=== PATIENT | female | born 1985 | race Caucasian/White ===

== ENCOUNTER 2017-05-19 20:30 | Emergency (ER) | payer OTHER ==
[2017-05-19 21:07] LABS: Hematocrit 40 % (35-47); Hemoglobin 13.4 g/dl (12.0-16.0); Mean Corpuscular HGB Conc 34 g/dl (31-36); Mean Corpuscular Hemoglobin 30 pg (27-31); Mean Corpuscular Volume 90 fL (80-97); Mean Platelet Volume 11 um3 (7.4-10.4); Red Blood Count 4.42 10^6/ul (4.0-5.4); Red Cell Distribution Width 13 % (10.5-15); White Blood Count 12.9 10^3/ul (3.5-10.8)
[2017-05-19 21:22] LABS: Albumin 4.1 g/dL (3.2-5.2); BUN/Creatinine Ratio 16.1 (8-20); Calcium 9.5 mg/dL (8.6-10.3); EGFR African American 142.6 (>60); EGFR Non-African American 110.9 (>60); Globulin 3.6 g/dL (2-4); Total Bilirubin 0.4 mg/dL (0.2-1.0); Total Protein 7.7 g/dL (6.4-8.9)
[2017-05-19 21:40] LABS: Urine Bilirubin Negative (Negative); Urine Glucose Negative (Negative); Urine Nitrite Negative (Negative)
[2017-05-19 21:41] LABS: Urine Bacteria Absent (Absent)
[2017-05-19] MEDS ORDERED: NS 0.9% 1000 ML* 1,000 ML IV ONE (21:44)
[2017-05-19] MEDS ORDERED: Potassium Chlor TAB* 20 MEQ TAB.ER PO ONE (22:56)
--- NOTE | 2017-05-19 23:35 | ED ---
- HPI Summary HPI Summary: 31F at 13 weeks 2 days presents with vaginal bleeding for an hour. She states that she noticed when she stood up some heavy vaginal bleeding. She states that she had a normal u/s on Saturday and that everything with the had been going well. She denies any dysuria, flank pain, frequency, urgency, history of STDs, fever, n/v/d/c. [facility]. She has cramp like pelvic pain present. She has not taken anything for her pain. - History of Current Complaint Chief Complaint: EDVaginalBleeding Stated Complaint: 13 WKS PREG/BLEEDING Time Seen by Provider: 05/19/17 20:42 Pain Intensity: 3 - Assessment Hx Hysterectomy: No - Allergies/Home Medications Allergies/Adverse Reactions: Allergies Allergy/AdvReac Type Severity Reaction Status Date / Time Amoxicillin Allergy Unknown Verified 03/29/15 11:05 Reaction Details PMH/Surg Hx/FS Hx/Imm Hx Previously Healthy: Yes Endocrine/Hematology History: Denies: Hx Anticoagulant Therapy Cardiovascular History: Denies: Hx Hypertension Infectious Disease History: No Infectious Disease History: Denies: Traveled Outside the [place] in Last 30 Days - Family History Known Family History: Positive: Hypertension - Social History Alcohol Use: None Substance Use Type: Reports: None Smoking Status (MU): Current Every Day Smoker Review of Systems Negative: Fever Negative: Chest Pain Negative: Shortness Of Breath Positive: Abdominal Pain - pelvic pain. Negative: Vomiting, Diarrhea All Other Systems Reviewed And Are Negative: Yes Physical Exam - Physical Exam Triage Information Reviewed: Yes Vital Signs Reviewed: Yes Appearance: Positive: Well-Appearing Skin: Positive: Warm, Dry Head/Face: Positive: Normal Head/Face Inspection Eyes: Positive: Normal, Conjunctiva Clear ENT: Positive: Normal ENT inspection, Pharynx normal, TMs normal Respiratory/Lung Sounds: Positive: Clear to Auscultation, Breath Sounds Present Cardiovascular: Positive: Normal, RRR Abdomen Description: Positive: Soft, Other: - mild tenderness in pelvic region Bowel Sounds: Positive: Present Diagnostics - Vital Signs Vital Signs Temp Pulse Resp BP Pulse Ox 05/19/17 20:37 97 F 90 18 123/88 96 05/19/17 20:34 97.7 F 85 20 123/88 98 - Laboratory Lab Results: Lab Results 07/05/19/17 05/19/17 Range/Units 20:45 20:50 20:50 WBC 12.9 H (3.5-10.8) 10^3/ul RBC 4.42 (4.0-5.4) 10^6/ul Hgb 13.4 (12.0-16.0) g/dl Hct 40 (35-47) % MCV 90 (80-97) fL MCH 30 (27-31) pg MCHC 34 (31-36) g/dl RDW 13 (10.5-15) % Plt Count 229 (150-450) 10^3/ul MPV 11 H (7.4-10.4) um3 Neut % (Auto) 66.7 (38-83) % Lymph % (Auto) 26.5 (25-47) % Kleberg % (Auto) 5.5 (1-9) % Eos % (Auto) 0.9 (0-6) % Baso % (Auto) 0.4 (0-2) % Absolute Neuts (auto) 8.6 H (1.5-7.7) 10^3/ul Absolute Lymphs (auto) 3.4 (1.0-4.8) 10^3/ul Absolute Monos (auto) 0.7 (0-0.8) 10^3/ul Absolute Eos (auto) 0.1 (0-0.6) 10^3/ul Absolute Basos (auto) 0.1 (0-0.2) 10^3/ul Absolute Nucleated RBC 0 10^3/ul Nucleated RBC % 0 INR (Anticoag Therapy) (0.89-1.11) APTT (26.0-36.3) seconds Sodium 132 L (133-145) mmol/L Potassium 3.0 L (3.5-5.0) mmol/L Chloride 102 (101-111) mmol/L Carbon Dioxide 22 (22-32) mmol/L Anion Gap 8 (2-11) mmol/L BUN 10 (6-24) mg/dL Creatinine 0.62 (0.51-0.95) mg/dL Est GFR ( Amer) 142.6 (>60) Est GFR (Non-Af Amer) 110.9 (>60) BUN/Creatinine Ratio 16.1 (8-20) Glucose 85 (70-100) mg/dL Calcium 9.5 (8.6-10.3) mg/dL Total Bilirubin 0.40 (0.2-1.0) mg/dL AST 12 L (13-39) U/L ALT 18 (7-52) U/L Alkaline Phosphatase 71 (34-104) U/L Total Protein 7.7 (6.4-8.9) g/dL Albumin 4.1 (3.2-5.2) g/dL Globulin 3.6 (2-4) g/dL Albumin/Globulin Ratio 1.1 (1-3) Beta HCG, Quant 877218.00 mIU/mL Urine Color Red A Urine Appearance Turbid Urine pH 7.0 (5-9) Ur Specific Gaffney 1.025 (1.010-1.030) Urine Protein 2+(100 mg/dl) H (Negative) Urine Ketones Negative (Negative) Urine Blood 3+ H (Negative) Urine Nitrate Negative (Negative) Urine Bilirubin Negative (Negative) Urine Urobilinogen Negative (Negative) Ur Leukocyte Esterase Negative (Negative) Urine WBC (Auto) Absent (Absent) Urine RBC (Auto) 3+(>10/hpf) H (Absent) Ur Squamous Epith Cells Present H (Absent) Urine Bacteria Absent (Absent) Urinalysis Comment Urine Glucose Negative (Negative) Blood Type 05/19/17 05/19/17 Range/Units 20:50 20:50 WBC (3.5-10.8) 10^3/ul RBC (4.0-5.4) 10^6/ul Hgb (12.0-16.0) g/dl Hct (35-47) % MCV (80-97) fL MCH (27-31) pg MCHC (31-36) g/dl RDW (10.5-15) % Plt Count (150-450) 10^3/ul MPV (7.4-10.4) um3 Neut % (Auto) (38-83) % Lymph % (Auto) (25-47) % Kleberg % (Auto) (1-9) % Eos % (Auto) (0-6) % Baso % (Auto) (0-2) % Absolute Neuts (auto) (1.5-7.7) 10^3/ul Absolute Lymphs (auto) (1.0-4.8) 10^3/ul Absolute Monos (auto) (0-0.8) 10^3/ul Absolute Eos (auto) (0-0.6) 10^3/ul Absolute Basos (auto) (0-0.2) 10^3/ul Absolute Nucleated RBC 10^3/ul Nucleated RBC % INR (Anticoag Therapy) 0.90 (0.89-1.11) APTT 28.3 (26.0-36.3) seconds Sodium (133-145) mmol/L Potassium (3.5-5.0) mmol/L Chloride (101-111) mmol/L Carbon Dioxide (22-32) mmol/L Anion Gap (2-11) mmol/L BUN (6-24) mg/dL Creatinine (0.51-0.95) mg/dL Est GFR ( Amer) (>60) Est GFR (Non-Af Amer) (>60) BUN/Creatinine Ratio (8-20) Glucose (70-100) mg/dL Calcium (8.6-10.3) mg/dL Total Bilirubin (0.2-1.0) mg/dL AST (13-39) U/L ALT (7-52) U/L Alkaline Phosphatase (34-104) U/L Total Protein (6.4-8.9) g/dL Albumin (3.2-5.2) g/dL Globulin (2-4) g/dL Albumin/Globulin Ratio (1-3) Beta HCG, Quant mIU/mL Urine Color Urine Appearance Urine pH (5-9) Ur Specific Gaffney (1.010-1.030) Urine Protein (Negative) Urine Ketones (Negative) Urine Blood (Negative) Urine Nitrate (Negative) Urine Bilirubin (Negative) Urine Urobilinogen (Negative) Ur Leukocyte Esterase (Negative) Urine WBC (Auto) (Absent) Urine RBC (Auto) (Absent) Ur Squamous Epith Cells (Absent) Urine Bacteria (Absent) Urinalysis Comment Urine Glucose (Negative) Blood Type O Positive Result Diagrams: 05/19/17 20:50 05/19/17 20:50 Lab Statement: Any lab studies that have been ordered have been reviewed, and results considered in the medical decision making process. - Ultrasound No standard instances Ultrasound Interpretation: Positive (See Comments) - single liver interauterine gestation of approximately 12 weeks 6 days, moderate sized beau-gestational hematoma seen predominantly posterior to gestational sac. normal apperance of both ovaries. Ultrasound Interpretation Completed By: Radiologist Course/Dx - Course Course Of Treatment: 31F at 13 weeks 2 days presents with vaginal bleeding for an hour. She states that she noticed when she stood up some heavy vaginal bleeding. She states that she had a normal u/s on Saturday and that everything with the had been going well. She denies any dysuria, flank pain, frequency, urgency, history of STDs, fever, n/v/d/c. She has cramp like pelvic pain present. on exam mild pelvic tenderness. vital and h/h stable. u/s shows hematoma. explained results to patient and that needs to follow up with obgyn. patient understands and agrees with plan - Differential Diagnosis/HQI/PQRI: Spontaneous , Threatened , Intrauterine , Subchorionic Hemorrhage - Diagnoses Provider Diagnoses: Vaginal bleeding before 22 weeks gestation Discharge - Discharge Plan Condition: Good Disposition: HOME Patient Education Materials: Threatened Miscarriage (ED) Referrals: No Primary Care Phys,NOPCP [Primary Care Provider] - Additional Instructions: Will need repeat lab work in 48 hours Can take Tylenol for pain every 6 hours Follow up with obgyn Return to ED if develop severe pain, or any new or worsening symptoms
[2017-05-19 23:49] VITALS: BP 131/81
--- NOTE | 2017-05-20 07:25 | RAD ---
INDICATION: , vaginal bleeding. COMPARISON: There are no prior studies available for comparison. TECHNIQUE: Multiple real-time transvaginal images of the pelvis were obtained. FINDINGS: This exam demonstrates an early intrauterine . The heart rate was 136 beats per minute. There is a crescent-shaped hypoechoic process present adjacent to the gestational sac which is large in size measuring approximately 7.3 x 2.4 cm most consistent with a hematoma. The crown-rump length measured 6.5 cm corresponding to an estimated gestational age of 12 weeks 6 days. The right ovary measured 3.5 x 1.8 x 2.2 cm. The left ovary measured 3.3 x 1.6 x 3.2 cm. No free intraperitoneal fluid is seen. IMPRESSION: 1. EARLY VIABLE INTRAUTERINE WITH AN ESTIMATED GESTATIONAL AGE OF 12 WEEKS 6 DAYS. 2. LARGE PERIGESTATIONAL SAC HEMATOMA.
== END 2017-05-19 23:50 | disposition home or self-care (01) ==
LOC: ED 20:30
DX: O46.92 Antepartum hemorrhage, unspecified, second trimester (principal); R10.2 Pelvic and perineal pain; F17.210 Nicotine dependence, cigarettes, uncomplicated; Z3A.22 22 weeks gestation of pregnancy
CPT/HCPCS: 36415; 76801; 80053; 81003; 81015; 84702; 85025; 85610; 85730; 86900; 86901; 99282; A9270-GY

== ENCOUNTER 2017-11-14 03:45 | Inpatient (IN) | payer OTHER ==
[~2017-11-14 03:45] MED LIST: Buffered Lidocaine 0.9% SYRIN* 5 ML/SYR SYRINGE INTRADERM ONE
[2017-11-14] MEDS ORDERED: Sodium Citrate/Citric Acid* 15 ML UDC PO ONE (06:00)
[2017-11-14] MEDS ORDERED: Famotidine IV* 10 MG/ML 2 ML (20 mg) IV ONE (06:00)
[2017-11-14] MEDS ORDERED: ceFOXitin 2 GM IVPREMIX* 2 GM/50 ML BAG ONE (07:25)
[2017-11-14] MEDS ORDERED: Morphine PF AMP (0.5MG/ML)* 5 MG/10 ML AMP ONE (07:33)
[2017-11-14] MEDS ORDERED: Dexamethasone IV* 4 MG/ML 1 ML (4 MG) ONE (07:34)
[2017-11-14] MEDS ORDERED: Ondansetron INJ* 2 MG/ML VIAL ONE (07:34)
[2017-11-14] MEDS ORDERED: OXYTOCIN* 10 UNITS/ML 1 ML VIAL ONE ×2 (07:34→08:37)
[2017-11-14] MEDS ORDERED: fentaNYL* 50 MCG/ML 2 ML VIAL (100 MCG VIAL) ONE (08:43)
[2017-11-14] MEDS ORDERED: fentaNYL* 50 MCG/ML 2 ML VIAL (100 MCG VIAL) IV PRN (08:47)
[2017-11-14] MEDS ORDERED: DiMENhydriNATE IV* 50 MG/ML VIAL IV PUSH PRN (08:47)
[2017-11-14] MEDS ORDERED: Ondansetron INJ* 2 MG/ML VIAL IV PRN (08:47)
[2017-11-14] MEDS ORDERED: Naloxone* 0.4 MG/ML 1 ML VIAL IV PRN ×2 (08:47)
[2017-11-14] MEDS ORDERED: Nalbuphine* 20 MG/ML 1 ML VIAL IV PRN ×2 (08:47)
[2017-11-14] MEDS ORDERED: oxyCODONE/Acetamin 5/325 MG* TAB PO PRN (08:47)
[2017-11-14] MEDS ORDERED: Dibucaine 1% 28.35 GM TUBE PR PRN (09:30)
[2017-11-14] MEDS ORDERED: Acetaminophen TAB* 325 MG PO PRN (09:30)
[2017-11-14] MEDS ORDERED: Witch Hazel PAD* JAR TOPICAL PRN (09:30)
[2017-11-14] MEDS ORDERED: Glycerin ADULT SUPP PR PRN (09:30)
--- OUTSIDE RECORDS SUMMARY | 2017-11-14 09:56 | XMS REPORT ---
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 Payers Type Date Identification Numbers Payment Provider Subscriber Commercial Policy Number: [id number] [facility] Andie Nails PayID: [id number] [address] [address] [place] [address] Problems Description No Information Family History Date Family Member(s) Problem(s) Comments Father A&W Mother A&W First Son A&W First Daughter A&W Paternal Grandfather due to Unknown Causes () Paternal Grandmother due to Unknown Causes () Maternal Grandfather due to Unknown Causes () Maternal Grandmother A&W Social History Type Date Description Comments Education Currently working on Associates Degree Marital Status Single Lives With Son Lives With Daughter Pets 1 cat Pets Rabbit 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 Cigarette Use Former Cigarette Smoker quit April 2017 ETOH Use Denies alcohol use Recreational Drug Use Denies Drug Use Smoking Patient is a former smoker Daily Caffeine Consumes on average 1 cup of tea per day STD's No STD History Allergies, Adverse Reactions, Alerts Date Description Reaction Status Severity Comments 10/01/2017 Amoxicillin active Medications Medication Date Status Form Strength Qnty SIG Indications Ordering Provider Jordy Rey Active Capsules 27-0.6-0.4- 30caps 1 by Tasha Mensah 300mg mouth Vicente, CNM every day Immunizations CPT Code Status Date Vaccine Lot # [id number] Given 08/29/2017 Tetnus, Diptheria Toxoids And Acellular Pertussis, TB2R2 PT > 7Yrs Old [id number] Given 08/29/2017 Influenza Vaccine Quadrivalent Preser/Antibiotic [id number] Free Im Use Vital Signs Date Vital Result Comment 11/06/2017 BP Systolic 124 mmHg BP Diastolic 80 mmHg Body Temperature 97.7 F Heart Rate 80 /min Respiratory Rate 20 /min Height 62 inches 5'2" Weight 151.00 lb BMI (Body Mass Index) 27.6 kg/m2 3 Parity 2 05/17/2017 BP Systolic 120 mmHg BP Diastolic 64 mmHg Height 62 inches 5'2" Weight 124.00 lb BMI (Body Mass Index) 22.7 kg/m2 3 Parity 2 Results Test Date Test Result H/L Range Note Laboratory test finding 08/29/2017 Glucose 1 HR Post 84 mg/dL 70-160 1 Prandial CBC With No Diff 08/29/2017 White Blood Count 10.3 10^3/uL 3.5-10.8 Red Blood Count 3.80 10^6/uL Low 4.0-5.4 Hemoglobin 11.6 g/dL Low 12.0-16.0 Hematocrit 34 % Low 35-47 Mean Corpuscular Volume 90 fL 80-97 Mean Corpuscular Hemoglobin 30 pg 27-31 Mean Corpuscular HGB Conc 34 g/dL 31-36 Red Cell Distribution Width 13 % 10.5-15 Platelet Count 247 10^3/uL 150-450 Mean Platelet Volume 11 um3 High 7.4-10.4 Sequential Integreated SCRN 2 [place] 06/07/2017 Interpretation SEE BELOW 2 Risk For Ontd <1:5000 Age Risk Down Syndrome 1:380 FATOUMATA Down Syndrome Risk 1:4400 <1:270 FATOUMATA Trisomy 18 Risk <1:5000 <1:100 Calculated Gestational Age 15.9 3 Afp,Serum 38.4 ng/mL Afp Mom 1.06 4 HCG,Serum 75.3 IU/mL HCG Mom 1.85 Estriol,Free 0.81 ng/mL Estriol Mom 0.95 Inhibin A,Dimeric 157 pg/mL Inhibin A Mom 0.82 Lorraine-A 842.9 ng/mL 5 Lorraine-A Mom 0.61 NT Mom 1.13 6 Referring Physician Name REAL Referring Physician Phone [phone] Referring Physician Npi [id number] Specimen # From Part 1 [id number] Date Of 1985 Collection Date 06/07/2017 Maternal Weight 124 lbs Est'd Date Of Delivery 11/20/2017 Nuchal Translucency 1.7 mm [place] Rump Length 67.0 mm Ultrasound Date 05/17/2017 Nasal Bone NG Mother's Ethnic Origin Insulin Depend Diabetic NO Repeat Specimen NO Number Of Fetuses 1 HX Of Neural Tube Defects NO Twin B Nasal Bone NG 7 Lead 05/20/2017 Lead <1.0 g/dL 0.0-4.9 8 HIV 1/2 AB Evaluation 05/20/2017 HIV 1 2 Antibody Nonreactive Nonreactive 9 Type And Screen 05/20/2017 Patient Blood Type O Positive Antibody Screen NEGATIVE CBC With No Diff 05/20/2017 White Blood Count 10.2 10^3/uL 3.5-10.8 Red Blood Count 4.10 10^6/uL 4.0-5.4 Hemoglobin 12.5 g/dL 12.0-16.0 Hematocrit 39 % 35-47 Mean Corpuscular Volume 95 fL 80-97 Mean Corpuscular Hemoglobin 31 pg 27-31 Mean Corpuscular HGB Conc 32 g/dL 31-36 Red Cell Distribution Width 15 % 10.5-15 Platelet Count 205 10^3/uL 150-450 Mean Platelet Volume 12 um3 High 7.4-10.4 PNL No Urine 05/20/2017 Rubella Screen Immune IU/mL Immune 10 Hemoglobin A1c 5.0 % Less than 6.0 11 Hepatitis B Surface Ag Nonreactive Nonreactive 12 Syphillis Igg W/Reflex RPR Nonreactive Nonreactive 13 Organ Plus 05/20/2017 Abcc8-related hyperinsulinism Negative alkaptonuria Negative alpha-1 antitrypsin deficiency Negative alpha-mannosidosis Negative alpha-sarcoglycanopathy Negative Andermann syndrome Negative Arsacs Negative aspartylglycosaminuria Negative ataxia with vitamin E deficiency Negative ataxia-telangiectasia Negative Bardet-Biedl syndrome, BBS1-related Negative Bardet-Biedl syndrome, MSF96-opheipj Negative beta-sarcoglycanopathy Negative biotinidase deficiency Negative Li syndrome Negative Mima disease Negative carnitine palmitoyltransferase Ia deficiency Negative carnitine palmitoyltransferase II deficiency Negative cartilage-hair hypoplasia Negative choroideremia Negative citrullinemia type 1 Negative CLN3-related neuronal ceroid lipofuscinosis Negative CLN5-related neuronal ceroid lipofuscinosis Negative CNGB3-related achromatopsia Negative Bauer syndrome Negative congenital disorder of glycosylation type Ia Negative congenital disorder of glycosylation type Ib Negative congenital [place] Islander nephrosis Negative Costeff optic atrophy syndrome Negative cystic fibrosis Negative cystinosis Negative D-bifunctional protein deficiency Negative dihydropyrimidine dehydrogenase deficiency Negative factor V Leiden thrombophilia Negative factor XI deficiency Negative familial dysautonomia Negative familial Mediterranean fever Negative Fanconi anemia type C Negative galactosemia Negative Gaucher disease Negative GJB2-related DFNB1 nonsyndromic hearing loss and deafness Negative pquvtbd-9-bwoxbmknk dehydrogenase deficiency Negative glutaric acidemia type 1 Negative glycogen storage disease type Ia Negative glycogen storage disease type Ib Negative glycogen storage disease type III Negative glycogen storage disease type V Negative Gracile syndrome Negative Hadha-related disorders Negative Hb beta chain-related hemoglobinopathy Negative hereditary fructose intolerance Negative Herlitz junctional epidermolysis bullosa, Lama3-related Negative Herlitz junctional epidermolysis bullosa, Lamb3-related Negative Herlitz junctional epidermolysis bullosa, Lamc2-related Negative hexosaminidase A deficiency Negative Hfe-associated hereditary hemochromatosis Negative homocystinuria caused by cystathionine beta-synthase deficiency Negative hypophosphatasia, autosomal recessive Negative inclusion body myopathy 2 Negative isovaleric acidemia Negative Eddi syndrome 2 Negative Krabbe disease Negative lipoamide dehydrogenase deficiency Negative maple syrup urine disease type 1B Negative medium chain acyl-CoA dehydrogenase deficiency Negative megalencephalic leukoencephalopathy with subcortical cysts Negative metachromatic leukodystrophy Negative mild hyperhomocysteinemia caused by MTHFR deficiency Positive High 14 mucolipidosis IV Negative mucopolysaccharidosis type I Negative sdugkp-ggk-fcfnh disease Negative Neb-related nemaline myopathy Negative Tamiko-Pick disease type C Negative Tamiko-Pick disease, SMPD1-associated Negative Nijmegen breakage syndrome Negative Northern epilepsy Negative YNDD54-tevzorw disorders Negative Pendred syndrome Negative Pex1-related Zellweger syndrome spectrum Negative phenylalanine hydroxylase deficiency Negative PKHD1-related autosomal recessive polycystic kidney disease Negative polyglandular autoimmune syndrome type 1 Negative Pompe disease Negative PPT1-related neuronal ceroid lipofuscinosis Negative primary carnitine deficiency Negative primary hyperoxaluria type 1 Negative primary hyperoxaluria type 2 Negative Prop1-related combined pituitary hormone deficiency Negative prothrombin thrombophilia Negative pseudocholinesterase deficiency Negative pycnodysostosis Negative rhizomelic chondrodysplasia punctata type 1 Negative Salla disease Negative Segawa syndrome Negative short chain acyl-CoA dehydrogenase deficiency Negative Sjogren-Real syndrome Negative Qdghx-Jclfr-Ihaox syndrome Negative spinal muscular atrophy Negative 15 steroid-resistant nephrotic syndrome Negative sulfate transporter-related osteochondrodysplasia Negative TPP1-related neuronal ceroid lipofuscinosis Negative tyrosinemia type I Negative Usher syndrome type 3 Negative very long chain acyl-CoA dehydrogenase deficiency Negative Chad disease Negative X-linked juvenile retinoschisis Negative PDF Report SEE IMAGE Sequential Integrated SCRN 1 [place] 05/20/2017 Interpretation SEE BELOW 16 Age Risk Down Syndrome 1:290 FATOUMATA Down Syndrome Risk IN PROCESS <1:50 FATOUMATA Trisomy 18 Risk IN PROCESS <1:100 Calculated Gestational Age 13.3 17 Lorraine-A 842.9 ng/mL 18 Lorraine-A Mom 0.61 HCG,Serum 110.2 IU/mL HCG Mom 1.24 NT Mom 1.13 19 Referring Physician Name REAL 20 Referring Physician Phone NG 21 Referring Physician Npi NG 22 Date Of 1985 23 Collection Date 05/20/2017 24 Maternal Weight 124 lbs 25 Est'd Date Of Delivery 11/20/2017 26 HARSHAD Determined By U/S 27 Mother's Ethnic Origin 28 Number Of Fetuses 1 29 Insulin Depend Diabetic NO 30 Repeat Specimen NO 31 HX Of Neural Tube Defects NO 32 Prev Down Synd NO 33 Donor Egg NO 34 Donor Age:Egg Retrieval NG 35 Ultrasound Date 05/17/2017 36 Perch Mender's Name SYLVESTER 37 NTQR Perch Mender Id# [id number] NTQR Location Id# [id number] NTQR Reading Phys Id# [id number] FMF Perch Mender Id# NG 41 [place] Rump Length 67.0 mm 42 Nuchal Translucency 1.7 mm 43 Nasal Bone NOT MEASURED 44 If Twins ONLY 1 FETUS 45 Twin B CRL NG mm 46 Twin B NT NG mm 47 Twin B Nasal Bone NG 48 Laboratory test 05/17/2017 Cytology SEE RESULT BELOW 49 finding GC/Chlamydia Dna 05/17/2017 Chlamydia trachomatis Negative Negative Probe Rna Neisseria gonorrhoeae (GC) Rna Negative Negative Laboratory test finding 05/17/2017 Human Papilloma Negative Negative 50 Virus Rna Urine Culture And 05/17/2017 Urine Culture SEE RESULT BELOW 51 Sensitivities 1 [id number] 2 SCREEN NEGATIVE FOR OPEN NTD, DOWN SYNDROME AND TRISOMY 18. NT WAS USED IN THE RISK CALCULATIONS. 3 [place] rump length (CRL) was used to calculate gestational age. HARSHAD, if provided, was not used for gestational age dating. 4 Reference Range: <2.50 IDD <1.90 TWINS <4.00 TWINS IDD <3.50 TRIPLETS <4.50 5 This test was performed using a kit that has not been cleared or approved by the FDA. The analytical performance characteristics of this test have been determined by [facility]. This test should not be used for diagnosis without confirmation by other medically established means. 6 The Sequential Integrated Screen combines LORRAINE-A and hCG with or without a nuchal translucency measurement in the first trimester with AFP, unconjugated estriol, intact hCG and Inhibin A in the second trimester. This provides a useful screening test for detection of open neural tube defects, Down syndrome and Trisomy 18. It should be noted that normal results can never guarantee the of a normal baby and that 2 to 3 percent of newborns have some type of physical or mental defect, many of which are undetectable through any known diagnostic technique. Interpretation reviewed by: Sayra Weinstein, Ph.D., [facility]. This is a screening test, not a diagnostic test. This risk assessment is based on demographic data provided by the ordering physician. Please notify the laboratory promptly if any data are incorrect. If you have questions concerning this report: For clinical consultation, call ; For technical questions, call ext [phone]; For recalculations, fax to [phone]. 7 For additional information, please refer to [email or web address] Technology/faq/FAQ94 (This link is provided for informational/educational purposes only.) 8 ADDITIONAL INFORMATION Testing performed by Inductively Coupled Plasma-Mass Spectrometry (ICP-MS). This test was developed and its performance characteristics determined by [facility] in a manner consistent with CLIA requirements. This test has not been cleared or approved by the U.S. Food and Drug Administration. 9 It is recognized that currently available assays for the detection of antibodies to HIV-1 and/or HIV-2 may not detect all infected individuals. HIV antibodies may be undetectable in some stages of the infection and in some clinical conditions. The performance of this assay has not been established for populations of infants or children. Assayed by Chemiluminescence Microparticle Immunoassay on the Siemens Advia Centaur CP. Values obtained with different methods or kits cannot be used interchangeably.The diagnostic specificity of the ADVIA Centaur 1/O/2 Enhanced assay in the low risk population was 99.90% (6052/6058) with a 95% confidence interval of 99.78 to 99.96%. 10 [id number] 11 Therapeutic target for the treatment of diabetes Mellitus patients is <7% HBA1C, and in selective patients <6.0%.Please refer to [place] [employer] Diabetic care guidelines for further information. 12 [id number] 13 Warning: A positive result is not useful for establishing a diagnosis of syphilis. In most situations, such a result may reflect a prior treated infection; a negative result can exclude a diagnosis of syphilis except for incubating or early primary disease. 14 Positive result: [id number](MTHFR):c.665C>T(A222V) heterozygote (deleterious). 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 Carriers generally do not experience symptoms. 15 Negative result: SMN1: 3+ copies. 16 This patient's risk does not exceed the first trimester cut-off for Down syndrome or trisomy 18. The integrated screen calculation is awaiting the second trimester sample. NT WAS USED IN THE RISK CALCULATIONS. Thank you for submitting this patient's Part 1 specimen. These first trimester values will be incorporated with the second trimester values as part of the integrated testing process. Please submit the Part 2 specimen between 06/01/2017-07/26/2017 (15.0 and 22.9 weeks gestation) with 06/01/2017-06/14/2017 (15.0 - 16.9 weeks gestation) being optimal. When submitting Part 2, please include the following Specimen # from Part 1: [id number] 17 [place] rump length (CRL) was used to calculate gestational age. HARSHAD, if provided, was not used for gestational age dating. 18 This test was performed using a kit that has not been cleared or approved by the FDA. The analytical performance characteristics of this test have been determined by [facility]. This test should not be used for diagnosis without confirmation by other medically established means. 19 Interpretation reviewed by: Rashi Corona, Ph.D., [facility] This is a screening test, not a diagnostic test. This risk assessment is based on demographic data provided by the ordering physician. Please notify the laboratory promptly if any data are incorrect. If you have questions concerning this report: For clinical consultation, call ; For technical questions, call ext [phone]; For recalculations, fax to . For additional information, please refer to [email or web address]://[email or web address] [employer]/faq/FAQ89 (This link is being provided for informational/educational purposes only.) 20 For additional information, please refer to http://Cylande/faq/[email or web address] (This link is being provided for informational/educational purposes only.) 21 For additional information, please refer to http://Cylande/faq/FAQ89 (This link is being provided for informational/educational purposes only.) 22 For additional information, please refer to http://Cylande/faq/FAQ89 (This link is being provided for informational/educational purposes only.) 23 For additional information, please refer to http://Cylande/faq/FAQ89 (This link is being provided for informational/educational purposes only.) 24 For additional information, please refer to http://Cylande/faq/FAQ89 (This link is being provided for informational/educational purposes only.) 25 For additional information, please refer to http://Cylande/faq/FAQ89 (This link is being provided for informational/educational purposes only.) 26 For additional information, please refer to http://Cylande/faq/FAQ89 (This link is being provided for informational/educational purposes only.) 27 For additional information, please refer to http://Cylande/faq/FAQ89 (This link is being provided for informational/educational purposes only.) 28 For additional information, please refer to http://Cylande/faq/FAQ89 (This link is being provided for informational/educational purposes only.) 29 For additional information, please refer to http://Cylande/faq/FAQ89 (This link is being provided for informational/educational purposes only.) 30 For additional information, please refer to http://Cylande/faq/FAQ89 (This link is being provided for informational/educational purposes only.) 31 For additional information, please refer to http://Cylande/faq/FAQ89 (This link is being provided for informational/educational purposes only.) 32 For additional information, please refer to http://Cylande/faq/FAQ89 (This link is being provided for informational/educational purposes only.) 33 For additional information, please refer to http://Cylande/faq/FAQ89 (This link is being provided for informational/educational purposes only.) 34 For additional information, please refer to http://Cylande/faq/FAQ89 (This link is being provided for informational/educational purposes only.) 35 For additional information, please refer to http://Cylande/faq/FAQ89 (This link is being provided for informational/educational purposes only.) 36 For additional information, please refer to http://Cylande/faq/FAQ89 (This link is being provided for informational/educational purposes only.) 37 For additional information, please refer to http://Cylande/faq/FAQ89 (This link is being provided for informational/educational purposes only.) 38 For additional information, please refer to http://Cylande/faq/FAQ89 (This link is being provided for informational/educational purposes only.) 39 For additional information, please refer to http://Cylande/faq/FAQ89 (This link is being provided for informational/educational purposes only.) 40 For additional information, please refer to http://Cylande/faq/FAQ89 (This link is being provided for informational/educational purposes only.) 41 For additional information, please refer to http://Cylande/faq/FAQ89 (This link is being provided for informational/educational purposes only.) 42 For additional information, please refer to http://Cylande/faSpanfeller Media Group/FAQ89 (This link is being provided for informational/educational purposes only.) 43 For additional information, please refer to http://Cylande/BitePalq/FAQ89 (This link is being provided for informational/educational purposes only.) 44 For additional information, please refer to http://Cylande/BitePalq/FAQ89 (This link is being provided for informational/educational purposes only.) 45 For additional information, please refer to http://Cylande/faSpanfeller Media Group/FAQ89 (This link is being provided for informational/educational purposes only.) 46 For additional information, please refer to http://Cylande/faq/FAQ89 (This link is being provided for informational/educational purposes only.) 47 For additional information, please refer to http://Cylande/faq/FAQ89 (This link is being provided for informational/educational purposes only.) 48 For additional information, please refer to http://Cylande/faSpanfeller Media Group/FAQ89 (This link is being provided for informational/educational purposes only.) 49 SEE RESULT BELOW Name: ANDIE NAILS : [address]: Daisy Parker CM Acct: [id number] Unit: [id number] AGE: 31 Location: [facility] Re05/17/17 SEX: F Status: REG REF SPEC: [id number] BAM: 05/17/17-[address]: Daisy Parker CM REQ: [id number] RECD: 05/20/17-1206 STATUS: SOUT _ ORDERED: TP IMAGE ANAL, HPV/Thin Prep COMMENTS: [id number] FINAL DIAGNOSIS Negative for Intraepithelial lesion or Malignancy Fungal organisms morphologically consistent with Mylene species A. Ectocervical/Endocervical Specimen Adequacy: Satisfactory of evaluation Transformation zone component not identified Patient Information: HPV: High risk HPV RNA testing regardless of pap results. Actual Specimen Date: 05/17/17 LMP If Unknown: unknown Spec Date if unknown: unknown ?: Y Post Menopausal?: N Hysterectomy?: N Previous Abnormal Pap Smears?:N Date Time Test Result Flag (u) Normal Range 05/17/17 1601 HPV RNA Negative Negative The high-risk HPV types detected by the assay include: 16, 18, 31, 33, 35, 39, 45, 51, 52, 56, 58, 59, 66, and 68. Signed (signature on file) JOSE Troy(ASC) 05/21 1520 This Pap test was evaluated with the assistance of the UB AccessPrep Test Imaging System. Due to cytologic findings at the special police officer microscope, comprehensive manual rescreening by a Skip Miner Blasting may be required. The Pap Smear is a screening test designed to aid in the detection of premalignant and malignant conditions of the uterine cervix. It is not a diagnostic procedure and should not be used as the sole means of detecting cervical cancer. Both false- positive and false- negative reports do occur. Depending on your risk status, a Pap smear should be obtained and evaluated every 1-3 years. END OF REPORT * ML=Testing performed at Main Lab DEPARTMENT OF PATHOLOGY, [address] [place] [address] RUN DATE: 05/21/17 [facility] LAB LIVE PAGE 1 Patient: ANDIE NAILS [id number] (Continued) Abilio Navarro M.D. Director [facility] # [id number] 50 The high-risk HPV types detected by the assay include: 16, 18, 31, 33, 35, 39, 45, 51, 52, 56, 58, 59, 66, and 68. 51 SEE RESULT BELOW Name: ANDIE NAILS : [address]: Daisy Parker CM Acct: [id number] Unit: [id number] AGE: 31 Location: [facility] Re05/17/17 SEX: F Status: REG REF SPEC: [id number] BAM: 05/17/17-[address]: Daisy Parker CM REQ: [id number] RECD: 05/20/17-2 STATUS: COMP _ SOURCE: URINE SPDESC: ORDERED: Urine Culture COMMENTS: [id number] Urine Source: Random Procedure Result Reported Site Urine Culture Final 05/21/17- 1203 ML No Growth (<1,000 CFU/mL) * ML - MAIN LAB (PSC1) . END OF REPORT * ML=Testing performed at Main Lab DEPARTMENT OF PATHOLOGY, [address] [place] [address] Abilio Navarro M.D. Director [facility] # [id number] Procedures Date CPT Code Description Status 07/05/2017 33362 Echography Uterus Complete Completed 05/28/2017 36576 Echography Uterus Limited Completed 05/28/2017 91414 Echography Uterus Limited Completed 05/17/2017 06763 Nuchal Translucency Ultrasound /First Completed Gestation Encounters Type Date Location Provider CPT E/M Dx Office Visit 11/06/2017 10:00a [place] [address] Z01.818 Z34.83 Plan of Care Future Appointment(s):11/14/2017 7:45 am - Mihir Bonds M.D. at [facility] O R02 10:30 am - Dari Layton MD at [facility] Zrlieo6911/21/2017 11:20 am - Charlotte Marie CNM at [facility]/14/2017 7:45 am - Dari Layton MD at [facility] O 11/06/2017 - Dari Layton MDZ01.818 Encounter for other preprocedural examinationComments:Reviewed with patient risks benefits of repeat section and bilateral tubal ligation. Pt accepts risks to include but not limited to infection bleeding ,damage to internal organs, need for blood products, failure of tubal ligation with risk of ectopic . consent form signed with patient after personally review of consent form with patient.Z34.83 Encounter for suprvsn of normal , third trimesterComments:routine care delivered.
[2017-11-14] MEDS ORDERED: Oxytocin in LR* 20 UNITS/1,000 ML BAG IVPB SCH (10:00)
[2017-11-14] MEDS: oxyCODONE/Acetamin 5/325 MG* TAB PO PRN ×3 (11:19→21:54)
[2017-11-14] MEDS: Simethicone TAB* 80 MG TAB.CHEW PO SCH ×3 (11:19→21:54)
[2017-11-14] MEDS: Ketorolac INJ* 30 MG/ML 1 ML VIAL IV PRN ×2 (11:20→17:27)
--- NOTE | 2017-11-14 20:58 | OP ---
DATE OF OPERATION: 11/14/17 - ROOM #116 DATE OF : 81 SURGEON: Dari Layton MD TUFT MACHINE OPERATOR: Adriana Vines MD ANESTHESIOLOGIST: Kj Reed MD ANESTHESIA: Spinal. PRE-OP DIAGNOSES: Intrauterine at 39 and 0/7 weeks, vertex, desires repeat section, desires permanent sterility. POST-OP DIAGNOSES: Intrauterine at 39 and 0/7 weeks, vertex, desires repeat section, desires permanent sterility, delivered. OPERATIVE PROCEDURE: Repeat low transverse section with vacuum extraction and bilateral tubal ligation with fimbriectomy. ESTIMATED BLOOD LOSS: 600 cc. IV FLUIDS: 1600 cc of crystalloid. URINE OUTPUT: 150, clear yellow urine. FINDINGS: Revealed a vertex male . No nuchal cord. No meconium. Apgars were 9 at 1 minute and 9 at 5 minutes. Weight was 7 pounds and 11 ounces. Placenta was manually extracted. Three-vessel cord intact with no abnormalities. Normal-appearing tubes and ovaries bilaterally. COMPLICATIONS: None apparent. DISPOSITION: Stable to recovery room. DESCRIPTION OF PROCEDURE: The patient was placed in dorsal lithotomy position. The abdomen was prepped and draped in a sterile standard fashion. Anesthesia was tested to appropriate level. After identifying the patient with universal protocol, an incision was made elliptical around the prior incision with excision of the old scar. The incision was then carried down to the fascia, scored in the midline with scalpel and extended laterally and superiorly using Casper scissors. The fascia was superiorly and inferiorly with blunt and sharp dissection. The peritoneum was then entered sharply with Metzenbaum scissors and extended laterally using Bovie coagulation. The bladder blade was inserted. Lower uterine segment was identified, tented up with an Allis. Incision was made with a scalpel down to the membrane. The incision was extended bluntly. Amniotomy was created for clear fluid. The head was noted to be wider than the incision and skin incision was extended laterally using scalpel and then the head was delivered with vacuum without complications. Anterior, posterior shoulder was delivered. Cord was noted to not be entangled and the cord was clamped after 30 seconds of the baby on the operative field. Baby was noted to be vigorous and crying. The cord was then clamped doubly and cut and the baby was handed off to awaiting industrial security analyst. Appropriate cord blood was obtained. Placenta was then manually extracted and noted to be intact and had a 3-vessel cord. The uterus was exteriorized, cavity was wiped clean, and noted to be free of any membranes or placental tissue. The incision itself was reapproximated in 2 layers, first layer running locked 0 Vicryl, second layer running imbricated 0 Vicryl for complete closure of the hysterotomy site. At that point, attention was then turned to the tubal ligation. The patient confirmed her desire for permanent sterility. A Elvira was first placed across the left fimbria and mesosalpinx and there was a small tubal adhesion that was taken down with Bovie coagulation and the 0 Vicryl suture was placed at the base of the clamp and a second 2-0 Vicryl in Thanh fashion was placed for complete hemostasis. The distal fimbria and tube were then excised with Metzenbaum scissors. This was repeated and the same exact process on the right. The uterus was returned intraabdominally. Colic gutters were lavaged. Hysterotomy site was noted to be hemostatic. Both tubal ligation sites were visualized and noted to be hemostatic. The peritoneum was then reapproximated using 3-0 Vicryl in a running fashion. Subfascial area was visualized. Hemostasis was assured with Bovie coagulation. The fascia itself was then reapproximated using 0 Vicryl in a running fashion. Subcu was lavaged, hemostasis assured, and the skin was reapproximated using a 4-0 Monocryl in a subcuticular fashion. Mastisol and Steri's were placed. Telfa bandage placed. The patient tolerated the procedure well and went to recovery room in stable condition. [id number]/[facility] #: [id number] [facility] MEDICAL CENTERMohan
[2017-11-14] MEDS: Docusate CAP* 100 MG PO SCH (21:54)
[2017-11-15] MEDS ORDERED: oxyCODONE/Acetamin 5/325 MG* TAB PO PRN
[2017-11-15] MEDS: oxyCODONE/Acetamin 5/325 MG* TAB PO PRN ×4 (03:04→15:32)
[2017-11-15] MEDS: Ibuprofen TAB* 600 MG PO PRN ×3 (06:48→18:22)
[2017-11-15 07:54] LABS: ABS Basophils 0.1 10^3/ul (0-0.2); ABS Eosinophils 0.1 10^3/ul (0-0.6); ABS Monocytes 1.1 10^3/ul (0-0.8); ABS Neutrophils 9.5 10^3/ul (1.5-7.7); ABS Nucleated RBC 0 10^3/ul; Eosinophil % 0.7 % (0-6); Hematocrit 27 % (35-47); Hemoglobin 9.2 g/dl (12.0-16.0); Mean Corpuscular HGB Conc 35 g/dl (31-36); Mean Corpuscular Hemoglobin 30 pg (27-31); Mean Corpuscular Volume 88 fL (80-97); Mean Platelet Volume 12 um3 (7.4-10.4); Nucleated Red Blood Cells % 0; Platelet Count 179 10^3/ul (150-450); Red Blood Count 3.03 10^6/ul (4.0-5.4); Red Cell Distribution Width 14 % (10.5-15); White Blood Count 13.8 10^3/ul (3.5-10.8)
[2017-11-15] MEDS: Docusate CAP* 100 MG PO SCH ×4 (09:30→20:30)
[2017-11-15] MEDS: Ferrous Gluconate TAB* 324 MG TAB PO SCH ×2 (09:30→20:30)
[2017-11-15] MEDS: Simethicone TAB* 80 MG TAB.CHEW PO SCH ×4 (09:30→20:30)
[2017-11-15 20:07] VITALS: BP 128/70
[2017-11-16] MEDS: Ibuprofen TAB* 600 MG PO PRN ×2 (03:07→09:03)
[2017-11-16] MEDS: Simethicone TAB* 80 MG TAB.CHEW PO SCH ×2 (09:03→11:48)
[2017-11-16] MEDS: Docusate CAP* 100 MG PO SCH (09:03)
[2017-11-16] MEDS: Ferrous Gluconate TAB* 324 MG TAB PO SCH (09:03)
[2017-11-16] MEDS: oxyCODONE/Acetamin 5/325 MG* TAB PO PRN (11:48)
== END 2017-11-16 15:11 | disposition home or self-care (01) | DRG 540 ==
LOC: MCHOB 03:45 → UNDOADMIN 03:45 → MCHOB 05:42
PROVIDERS: ADMIT Obstetrics & Gynecology; ATTEND Obstetrics & Gynecology
PROC: 0UB70ZZ Excision of Bilateral Fallopian Tubes, Open Approach (ICD-10-PCS; 2017-11-14)
PROC: 10D00Z1 Extraction of Products of Conception, Low, Open Approach (ICD-10-PCS; principal; 2017-11-14 07:45)
DX: O34.211 Maternal care for low transverse scar from previous cesarean delivery (principal); Z37.0 Single live birth; Z3A.39 39 weeks gestation of pregnancy; Z87.891 Personal history of nicotine dependence
CPT/HCPCS: 36415; 85025; 88302; A9270-GY; J0694; J1100; J1885; J2405; J2590; J3010